=== PATIENT | male | born 1980 ===

== ENCOUNTER 2020-11-09 09:56 | Emergency (ER) | payer SELFPAY ==
[2020-11-09] MEDS ORDERED: Dexamethasone 10 MG/ML VIAL ONE (11:36)
== END 2020-11-09 12:15 | disposition home or self-care (01) ==
LOC: ERS 09:56
DX: J03.90 Acute tonsillitis, unspecified (principal); I10 Essential (primary) hypertension
CPT/HCPCS: 87081; 87430; 99284; J1100